=== PATIENT | female | born 1970 | race Two or more races ===

== ENCOUNTER 2021-02-09 13:22 | Emergency (ER) | payer BC ==
[~2021-02-09] VITALS: Ht 154.9 cm; Wt 92.5 kg
[2021-02-09 14:02] LABS: Basophils # (auto) 0.1 10 ^3/uL (0-0.2); Eosinophils # (auto) 0.3 10 ^3/uL (0-0.8); Eosinophils % (auto) 2.8 % (0.0-7.0); Hematocrit 42.7 % (36.0-46.0); Hemoglobin 14.6 g/dL (12.2-16.2); Lymphocytes # (auto) 2.7 10 ^3/uL (0.4-5.4); Mean Corpuscular Hemoglobin 29.2 pg (28.0-32.0); Mean Corpuscular Hgb Conc. 34.1 g/dL (32.0-36.0); Mean Corpuscular Volume 85.5 fL (80.0-100.0); Monocytes # (auto) 0.4 10 ^3/uL (0-1.3); Monocytes % (auto) 4.1 % (0.0-12.0); Neutrophils # (auto) 5.7 10 ^3/uL (1.6-8.6); Neutrophils % (auto) 62.1 % (37.0-80.0); Red Blood Cells 4.99 10^6/uL (4.0-5.20); Red Cell Distribution Width 16.1 % (11.8-14.3); White Blood Cell 9.1 10^3/uL (4.4-10.8)
[2021-02-09 14:21] LABS: Albumin 3.3 g/dL (3.4-5.0); Calcium 8.9 mg/dL (8.5-10.1); Magnesium 2.2 mg/dL (1.6-2.6); Potassium 3.9 mmol/L (3.5-5.1)
[2021-02-09 14:26] LABS: BUN/Creatinine Ratio 14.7; Bilirubin, Direct 0.1 mg/dL (0-0.2); Bilirubin, Total 0.4 mg/dL (0.2-1.0); Total Protein 7.6 g/dL (6.4-8.2)
[2021-02-09 14:34] LABS: Urine WBC None Seen /hpf (0 - 5)
[2021-02-09 14:40] LABS: Urine Bacteria FEW /hpf (None Seen); Urine Blood TRACE /uL (Negative); Urine Mucus FEW (None Seen); Urine Specific Gravity 1.013 (1.001-1.035)
[2021-02-09 18:13] VITALS: BP 148/70
== END 2021-02-09 18:15 | disposition home or self-care (01) ==
LOC: ER 13:22
DX: K80.20 Calculus of gallbladder without cholecystitis without obstruction (principal); K80.50 Calculus of bile duct without cholangitis or cholecystitis without obstruction; I10 Essential (primary) hypertension; M19.90 Unspecified osteoarthritis, unspecified site; Z88.0 Allergy status to penicillin; Z88.2 Allergy status to sulfonamides
CPT/HCPCS: 36415; 76705; 80048; 80076; 81001; 83605; 83690; 83735; 85025

== ENCOUNTER 2021-11-17 09:09 | Inpatient (IN) | payer BC ==
[~2021-11-17] VITALS: Ht 154.9 cm; Wt 101.0 kg
[2021-11-17 10:07] LABS: Basophils # (auto) 0.1 10 ^3/uL (0-0.2); Eosinophils # (auto) 0.4 10 ^3/uL (0-0.8); Eosinophils % (auto) 4.4 % (0.0-7.0); Hematocrit 39.9 % (36.0-46.0); Hemoglobin 13.4 g/dL (12.2-16.2); Lymphocytes % (auto) 23.9 % (10.0-50.0); Mean Corpuscular Hemoglobin 28.5 pg (28.0-32.0); Mean Corpuscular Hgb Conc. 33.6 g/dL (32.0-36.0); Mean Corpuscular Volume 84.8 fL (80.0-100.0); Monocytes # (auto) 0.4 10 ^3/uL (0-1.3); Monocytes % (auto) 4.6 % (0.0-12.0); Neutrophils # (auto) 5.5 10 ^3/uL (1.6-8.6); Neutrophils % (auto) 66.1 % (37.0-80.0); Nucleated Red Blood Cells % 0.1 %; Red Blood Cells 4.71 10^6/uL (4.0-5.20); Red Cell Distribution Width 15.9 % (11.8-14.3); White Blood Cell 8.4 10^3/uL (4.4-10.8)
[2021-11-17 10:25] LABS: Albumin 3.2 g/dL (3.4-5.0); Calcium 8.6 mg/dL (8.5-10.1); Magnesium 2.5 mg/dL (1.6-2.6); Potassium 3.8 mmol/L (3.5-5.1)
[2021-11-17 10:28] LABS: BUN/Creatinine Ratio 16.2; Bilirubin, Total 0.3 mg/dL (0.2-1.0); Total Protein 7.6 g/dL (6.4-8.2)
[2021-11-17] MEDS ORDERED: ASPirin 81 mg TAB PO ONE (12:00)
[2021-11-17] MEDS ORDERED: SODIUM CHLORIDE 0.9% 1,000 ML IV ONE (12:00)
[2021-11-17 12:08] LABS: Urine Bacteria NONE SEEN /hpf (None Seen); Urine Blood TRACE /uL (Negative); Urine Mucus FEW (None Seen); Urine Specific Gravity 1.023 (1.001-1.035); Urine WBC 1 /hpf (0 - 5)
[2021-11-17] MEDS ORDERED: ENOXAPARIN SOD 80 MG/0.8ML SYRINGE SC ONE (12:30)
[2021-11-17] MEDS ORDERED: METOPROLOL TARTRATE 1MG/1ML-5ML VIAL IV ONE ×2 (12:30→13:15)
[2021-11-17] MEDS ORDERED: MORPHINE SULFATE INJ 2 MG/ml SYRG IV PRN ×2 (13:30→15:15)
[2021-11-17] MEDS ORDERED: NITROGLYCERIN 0.4 MG SL TAB SL PRN (13:30)
[2021-11-17] MEDS ORDERED: FAMOTIDINE (10MG/ML) 2ML VL IV ONE (15:15)
[2021-11-17] MEDS ORDERED: ACETAMINOPHEN 325 MG TAB PO PRN (15:15)
[2021-11-17] MEDS ORDERED: ONDANSETRON HCL 4 MG/2 ML VIAL IV PRN (15:15)
[2021-11-17] MEDS ORDERED: HYDROcodone-ACET 5/325MG TAB PO PRN (15:15)
[2021-11-17] MEDS ORDERED: LORazepam 0.5 MG TAB PO PRN (15:15)
[2021-11-17] MEDS ORDERED: DOCUSATE SOD 100 MG CAP PO PRN (15:15)
[2021-11-17] MEDS ORDERED: IOHEXOL 350 MG/ML 100ML IJ ONE (15:27)
[2021-11-17 16:13] LABS: Magnesium 2.3 mg/dL (1.6-2.6); Phosphorus 2.9 mg/dL (2.5-4.90)
[2021-11-17] MEDS ORDERED: METO25TA5 PO ×2 (20:20→22:49)
[2021-11-17 22:47] VITALS: BP 107/70
[2021-11-17 22:50] LABS: INR 0.97 (0.9-1.15); Partial Thromboplastin Time 28.5 sec (23.6-33.0)
[2021-11-17] MEDS ORDERED: MET25T PO (22:59)
[2021-11-17] MEDS ORDERED: MONT-8 PO (22:59)
[2021-11-17] MEDS ORDERED: PRED20TA2 PO (22:59)
[2021-11-17] MEDS ORDERED: AZIT250T9 PO (22:59)
[2021-11-18 05:44] VITALS: BP 125/58
[2021-11-18 07:55] LABS: Basophils # (auto) 0.1 10 ^3/uL (0-0.2); Basophils % (auto) 0.7 % (0.0-2.0); Eosinophils # (auto) 0.3 10 ^3/uL (0-0.8); Eosinophils % (auto) 4.3 % (0.0-7.0); Hematocrit 38.1 % (36.0-46.0); Lymphocytes # (auto) 2.7 10 ^3/uL (0.4-5.4); Lymphocytes % (auto) 33.7 % (10.0-50.0); Mean Corpuscular Hemoglobin 28.8 pg (28.0-32.0); Mean Corpuscular Volume 84.6 fL (80.0-100.0); Monocytes # (auto) 0.4 10 ^3/uL (0-1.3); Monocytes % (auto) 5.5 % (0.0-12.0); Neutrophils # (auto) 4.5 10 ^3/uL (1.6-8.6); Neutrophils % (auto) 55.8 % (37.0-80.0); Red Blood Cells 4.51 10^6/uL (4.0-5.20); Red Cell Distribution Width 15.8 % (11.8-14.3)
[2021-11-18 08:10] LABS: Magnesium 2.2 mg/dL (1.6-2.6); Potassium 3.7 mmol/L (3.5-5.1)
[2021-11-18 08:13] LABS: INR 0.99 (0.9-1.15); Partial Thromboplastin Time 29.9 sec (23.6-33.0)
[2021-11-18 08:22] LABS: BUN/Creatinine Ratio 16.4; Bilirubin, Total 0.2 mg/dL (0.2-1.0); CRP High Sensitivity 1.47 mg/dL (< 0.3); Calcium 8.5 mg/dL (8.5-10.1); Phosphorus 3.4 mg/dL (2.5-4.90); Uric Acid 5.2 mg/dL (2.6-6.0)
[2021-11-18 09:00] VITALS: BP 134/53
[2021-11-18] MEDS ORDERED: FAMOTIDINE (10MG/ML) 2ML VL IV SCH (10:00)
[2021-11-18] MEDS: ENOXAPARIN SOD 40 MG/0.4 ML SYRINGE SC SCH (10:00)
[2021-11-18] MEDS ORDERED: BENAZEPRIL HCL 10 MG TAB PO ONE (12:00)
[2021-11-18 13:00] VITALS: BP 163/78
[2021-11-18] MEDS: hydrALAZINE HCL 20 MG/ML VL IV PRN (13:10)
[2021-11-18 14:38] VITALS: BP 140/50
[2021-11-18 15:22] LABS: Alcohol, Urine < 3.0 mg/dL (0-10); Amphetamine Screen, Urine NEGATIVE (NEGATIVE); Barbiturate Scree,Urine NEGATIVE (NEGATIVE); Benzodiazephine Screen, Urine NEGATIVE (NEGATIVE); Cannabinoid Screen, Urine NEGATIVE (NEGATIVE); Cocaine Screen, Urine NEGATIVE (NEGATIVE); Opiate Scree,Urine NEGATIVE (NEGATIVE); Phencyclidine Screen, Urine NEGATIVE (NEGATIVE); Protein, Urine 16.1 mg/dL (0.0-11.9)
[2021-11-18] MEDS ORDERED: ASPirin 81 mg TAB PO ONE (15:45)
[2021-11-18] MEDS ORDERED: VALSARTAN 80 MG TAB PO ONE (15:45)
[2021-11-18 22:00] VITALS: BP 137/81
[2021-11-18] MEDS ORDERED: METOPROLOL TARTRATE 25 MG TAB PO SCH (22:00)
[2021-11-18] MEDS: ATORVASTATIN 20 MG TAB PO SCH (22:42)
[2021-11-19] MEDS ORDERED: DEXTROSE (50%) 50ML SYRG IV PRN (03:00)
[2021-11-19] MEDS: levoFLOXacin 500MG 100 ML IV SCH (03:26)
[2021-11-19 05:00] VITALS: BP 137/64
[2021-11-19] MEDS: ACCU-CHEK COMFORT CURVE STRIP VI SCH ×4 (05:35→23:26)
[2021-11-19] MEDS: InsuLIN REG 1unit/0.01ml Soln (100units/ml) SC SCH ×4 (05:35→23:26)
[2021-11-19 07:10] LABS: Basophils # (auto) 0.1 10 ^3/uL (0-0.2); Basophils % (auto) 0.8 % (0.0-2.0); Eosinophils # (auto) 0.3 10 ^3/uL (0-0.8); Eosinophils % (auto) 4.2 % (0.0-7.0); Hematocrit 40.1 % (36.0-46.0); Hemoglobin 13.1 g/dL (12.2-16.2); Lymphocytes # (auto) 1.9 10 ^3/uL (0.4-5.4); Lymphocytes % (auto) 24.4 % (10.0-50.0); Mean Corpuscular Hemoglobin 27.7 pg (28.0-32.0); Mean Corpuscular Hgb Conc. 32.6 g/dL (32.0-36.0); Monocytes # (auto) 0.4 10 ^3/uL (0-1.3); Monocytes % (auto) 5.2 % (0.0-12.0); Neutrophils # (auto) 5.1 10 ^3/uL (1.6-8.6); Neutrophils % (auto) 65.4 % (37.0-80.0); Red Blood Cells 4.72 10^6/uL (4.0-5.20); Red Cell Distribution Width 15.7 % (11.8-14.3); White Blood Cell 7.8 10^3/uL (4.4-10.8)
[2021-11-19] MEDS ORDERED: ADENOSINE 83 MG in GIVE UN-DILUTED 0 ML IV STA (07:30)
[2021-11-19 07:32] LABS: Calcium 8.6 mg/dL (8.5-10.1); Potassium 3.8 mmol/L (3.5-5.1)
[2021-11-19 07:37] LABS: BUN/Creatinine Ratio 19.2; Bilirubin, Total 0.3 mg/dL (0.2-1.0); Magnesium 2.4 mg/dL (1.6-2.6); Phosphorus 3.3 mg/dL (2.5-4.90); Total Protein 7.1 g/dL (6.4-8.2)
[2021-11-19 07:38] LABS: INR 0.98 (0.9-1.15)
[2021-11-19 09:00] VITALS: BP 129/54
[2021-11-19] MEDS: ASPirin 81 mg TAB PO SCH (09:00)
[2021-11-19] MEDS: ENOXAPARIN SOD 40 MG/0.4 ML SYRINGE SC SCH (09:00)
[2021-11-19] MEDS ORDERED: BENAZEPRIL HCL 10 MG TAB PO SCH (10:00)
[2021-11-19 10:25] VITALS: BP 164/60
[2021-11-19 12:30] VITALS: BP 127/65
[2021-11-19 17:13] VITALS: BP 119/57
[2021-11-19] MEDS ORDERED: ERGOCALCIFEROL 50,000 UNIT(1.25MG) CAP PO SCH (17:45)
[2021-11-19] MEDS: ATORVASTATIN 20 MG TAB PO SCH (21:08)
[2021-11-19 22:00] VITALS: BP 130/59
[2021-11-20] MEDS: levoFLOXacin 500MG 100 ML IV SCH (03:15)
[2021-11-20 05:00] VITALS: BP 112/53
[2021-11-20] MEDS: InsuLIN REG 1unit/0.01ml Soln (100units/ml) SC SCH ×4 (05:15→23:57)
[2021-11-20] MEDS: ACCU-CHEK COMFORT CURVE STRIP VI SCH ×4 (05:15→23:57)
[2021-11-20 09:00] VITALS: BP 122/56
[2021-11-20] MEDS: ASPirin 81 mg TAB PO SCH (09:44)
[2021-11-20] MEDS: ENOXAPARIN SOD 40 MG/0.4 ML SYRINGE SC SCH (09:45)
[2021-11-20] MEDS: LOSARTAN POTASSIUM 50 MG TAB PO SCH (09:48)
[2021-11-20 12:41] VITALS: BP 136/70
[2021-11-20 17:14] VITALS: BP 109/66
[2021-11-20 22:00] VITALS: BP 133/55
[2021-11-20] MEDS: ATORVASTATIN 20 MG TAB PO SCH (22:00)
[2021-11-21] VITALS (14 sets, daily range): BP systolic 115–172; BP diastolic 53–80
[2021-11-21] MEDS: levoFLOXacin 500MG 100 ML IV SCH (03:15)
[2021-11-21 05:45] LABS: Basophils # (auto) 0.1 10 ^3/uL (0-0.2); Basophils % (auto) 0.7 % (0.0-2.0); Eosinophils # (auto) 0.3 10 ^3/uL (0-0.8); Eosinophils % (auto) 3.9 % (0.0-7.0); Hematocrit 37.4 % (36.0-46.0); Hemoglobin 12.6 g/dL (12.2-16.2); Lymphocytes # (auto) 2.7 10 ^3/uL (0.4-5.4); Mean Corpuscular Hemoglobin 28.5 pg (28.0-32.0); Mean Corpuscular Hgb Conc. 33.6 g/dL (32.0-36.0); Mean Corpuscular Volume 84.6 fL (80.0-100.0); Monocytes # (auto) 0.5 10 ^3/uL (0-1.3); Monocytes % (auto) 5.6 % (0.0-12.0); Neutrophils # (auto) 5.1 10 ^3/uL (1.6-8.6); Neutrophils % (auto) 58.8 % (37.0-80.0); Nucleated Red Blood Cells % 0.1 %; Red Blood Cells 4.42 10^6/uL (4.0-5.20); Red Cell Distribution Width 15.8 % (11.8-14.3); White Blood Cell 8.6 10^3/uL (4.4-10.8)
[2021-11-21 06:00] LABS: INR 0.99 (0.9-1.15); Partial Thromboplastin Time 28.4 sec (23.6-33.0)
[2021-11-21] MEDS: InsuLIN REG 1unit/0.01ml Soln (100units/ml) SC SCH ×4 (06:00→21:33)
[2021-11-21] MEDS: ACCU-CHEK COMFORT CURVE STRIP VI SCH ×4 (06:01→21:34)
[2021-11-21 06:03] LABS: Calcium 8.5 mg/dL (8.5-10.1); Potassium 3.8 mmol/L (3.5-5.1)
[2021-11-21 06:09] LABS: BUN/Creatinine Ratio 21.1
[2021-11-21] MEDS ORDERED: ANGIOMAX 250 MG VIAL IV ONE (09:47)
[2021-11-21] MEDS ORDERED: VERAPAMIL 2.5MG/ML INJ 2ML VIAL IV ONE (09:48)
[2021-11-21] MEDS ORDERED: fentaNYL CITRATE 100 MCG/2 ML VL ONE (09:48)
[2021-11-21] MEDS ORDERED: MIDAZOLAM HCL 2MG/2ML 2ml VIAL (1mg/ml) ONE (09:49)
[2021-11-21] MEDS ORDERED: LIDOCAINE 2%HCL (LOCAL ANESTH.) INJ 10ml MDV ONE (09:49)
[2021-11-21] MEDS ORDERED: SODIUM CHL 0.9% 50 ML ONE (09:49)
[2021-11-21] MEDS: ENOXAPARIN SOD 40 MG/0.4 ML SYRINGE SC SCH (10:00)
[2021-11-21] MEDS ORDERED: diphenhdrAMINE HCL 50 MG/1 ML VL ONE (10:16)
[2021-11-21] MEDS ORDERED: IOHEXOL 350 MG/ML 100ML IJ ONE (10:32)
[2021-11-21] MEDS ORDERED: ASPirin 325 MG TAB ONE (10:56)
[2021-11-21] MEDS ORDERED: TICAGRELOR 90 MG TAB ONE (10:56)
[2021-11-21] MEDS: ASPirin 81 mg TAB PO SCH (11:07)
[2021-11-21] MEDS: LOSARTAN POTASSIUM 50 MG TAB PO SCH (14:04)
[2021-11-21] MEDS: hydrALAZINE HCL 20 MG/ML VL IV PRN (14:50)
[2021-11-21] MEDS ORDERED: clonazePAM 0.5 MG TAB PO ONE (16:15)
[2021-11-21] MEDS: ATORVASTATIN 20 MG TAB PO SCH (21:33)
[2021-11-21] MEDS: TICAGRELOR 90 MG TAB PO SCH (21:50)
[2021-11-22] MEDS: levoFLOXacin 500MG 100 ML IV SCH (03:15)
[2021-11-22 05:00] VITALS: BP 101/58
[2021-11-22] MEDS: InsuLIN REG 1unit/0.01ml Soln (100units/ml) SC SCH ×2 (05:16→11:34)
[2021-11-22] MEDS: ACCU-CHEK COMFORT CURVE STRIP VI SCH ×2 (05:17→11:34)
[2021-11-22 06:25] LABS: BUN/Creatinine Ratio 26.6; Calcium 8.7 mg/dL (8.5-10.1); Potassium 3.9 mmol/L (3.5-5.1)
[2021-11-22 06:58] LABS: Basophils # (auto) 0.1 10 ^3/uL (0-0.2); Basophils % (auto) 0.6 % (0.0-2.0); Eosinophils # (auto) 0.4 10 ^3/uL (0-0.8); Eosinophils % (auto) 3.7 % (0.0-7.0); Hematocrit 34.9 % (36.0-46.0); Hemoglobin 11.9 g/dL (12.2-16.2); Lymphocytes # (auto) 2.2 10 ^3/uL (0.4-5.4); Lymphocytes % (auto) 21.9 % (10.0-50.0); Mean Corpuscular Hemoglobin 28.9 pg (28.0-32.0); Mean Corpuscular Hgb Conc. 34.1 g/dL (32.0-36.0); Mean Corpuscular Volume 84.7 fL (80.0-100.0); Monocytes # (auto) 0.5 10 ^3/uL (0-1.3); Monocytes % (auto) 5.4 % (0.0-12.0); Neutrophils % (auto) 68.4 % (37.0-80.0); Red Blood Cells 4.12 10^6/uL (4.0-5.20); Red Cell Distribution Width 15.6 % (11.8-14.3); White Blood Cell 10.2 10^3/uL (4.4-10.8)
[2021-11-22 09:00] VITALS: BP 106/60
[2021-11-22] MEDS: LOSARTAN POTASSIUM 50 MG TAB PO SCH (09:31)
[2021-11-22] MEDS: ENOXAPARIN SOD 40 MG/0.4 ML SYRINGE SC SCH (09:31)
[2021-11-22] MEDS: TICAGRELOR 90 MG TAB PO SCH (09:32)
[2021-11-22] MEDS: ASPirin 81 mg TAB PO SCH (09:32)
[2021-11-22 13:00] VITALS: BP 111/71
[2021-11-22] MEDS ORDERED: ASPI1CHW15 PO (14:29)
[2021-11-22] MEDS ORDERED: ATOR20TA50 PO (14:29)
[2021-11-22] MEDS ORDERED: LOSA25TA38 PO (14:29)
[2021-11-22] MEDS ORDERED: ERGO1CAP23 PO (14:29)
[2021-11-22] MEDS ORDERED: BLOO1KIT60 XX (14:29)
[2021-11-22] MEDS ORDERED: TICA90TA PO (14:29)
[2021-11-22] MEDS ORDERED: EMPA1TAB PO (14:31)
[2021-11-22 14:58] VITALS: BP 106/60
[2021-11-22] MEDS ORDERED: METOPROLOL TARTRATE 25 MG TAB PO SCH (22:00)
== END 2021-11-22 16:00 | disposition home or self-care (01) | DRG 246 ==
LOC: ER 09:09 → TELE 13:24 → TELE-WESTW 17:01
PROVIDERS: ADMIT Hospitalist; ATTEND Internal Medicine
PROC: B2151ZZ Fluoroscopy of Left Heart using Low Osmolar Contrast (ICD-10-PCS; principal; 2021-11-21)
PROC: 027135Z Dilation of Coronary Artery, Two Arteries with Two Drug-eluting Intraluminal Devices, Percutaneous Approach (ICD-10-PCS; 2021-11-21)
PROC: B2111ZZ Fluoroscopy of Multiple Coronary Arteries using Low Osmolar Contrast (ICD-10-PCS; 2021-11-21)
PROC: 4A023N7 Measurement of Cardiac Sampling and Pressure, Left Heart, Percutaneous Approach (ICD-10-PCS; 2021-11-21)
DX: I21.4 Non-ST elevation (NSTEMI) myocardial infarction (principal); J18.9 Pneumonia, unspecified organism; E44.1 Mild protein-calorie malnutrition; I16.9 Hypertensive crisis, unspecified; Z68.41 Body mass index [BMI] 40.0-44.9, adult; I24.9 Acute ischemic heart disease, unspecified; E11.65 Type 2 diabetes mellitus with hyperglycemia; K21.9 Gastro-esophageal reflux disease without esophagitis; K29.70 Gastritis, unspecified, without bleeding; F41.9 Anxiety disorder, unspecified; K76.0 Fatty (change of) liver, not elsewhere classified; K80.20 Calculus of gallbladder without cholecystitis without obstruction; E66.01 Morbid (severe) obesity due to excess calories; E78.5 Hyperlipidemia, unspecified; I11.9 Hypertensive heart disease without heart failure; I25.110 Atherosclerotic heart disease of native coronary artery with unstable angina pectoris; Z20.822 Contact with and (suspected) exposure to COVID-19; M19.90 Unspecified osteoarthritis, unspecified site; Z88.0 Allergy status to penicillin; Z88.2 Allergy status to sulfonamides; Z82.49 Family history of ischemic heart disease and other diseases of the circulatory system; Z72.0 Tobacco use
CPT/HCPCS: 36415; 71045; 71275; 76705; 78452; 80048; 80053; 80061; 80307; 81001; 82306; 82728; 82962; 83036; 83615; 83690; 83735; 83880; 84100; 84156; 84443; 84484; 84550; 85025; 85379; 85610; 85652; 85730; 86141; 87040; 87086; 92928; 92929; 93005; 93017; 93306; 93458; 96361; 96374; 96375; 99152; 99153; C1874; G0378; J0153; J1815; J1956; J2001; J2250

== ENCOUNTER 2022-09-22 17:52 | Emergency (ER) | payer BC ==
[~2022-09-22] VITALS: Ht 154.9 cm; Wt 90.0 kg
[~2022-09-22 17:52] MED LIST: ASPI1CHW15 PO; ATOR20TA50 PO; BLOO1KIT60 XX; EMPA1TAB PO; ERGO1CAP23 PO; LOSA25TA38 PO; TICA90TA PO
[2022-09-22] MEDS ORDERED: IPRATROPIUM BROM 0.5 MG/2.5ML INH SOL NEB ONE (19:00)
[2022-09-22] MEDS ORDERED: ALBUTEROL SULF 2.5 MG/0.5ML(0.5%) NEB SOLN NEB ONE (19:00)
[2022-09-22] MEDS ORDERED: DexAMETHasone SOD PHOS 10MG/1ML VIAL INJ IM ONE (19:00)
[2022-09-22] MEDS ORDERED: IPRATROPIUM BROM 0.5 MG/2.5ML INH SOL ONE (19:01)
[2022-09-22] MEDS ORDERED: ALBUTEROL SULF 2.5 MG/0.5ML(0.5%) NEB SOLN ONE (19:02)
[2022-09-22 19:11] LABS: Albumin 3.1 g/dL (3.4-5.0); BUN/Creatinine Ratio 19.5; Calcium 8.6 mg/dL (8.5-10.1); Potassium 3.5 mmol/L (3.5-5.1)
[2022-09-22 19:13] LABS: Bilirubin, Total 0.3 mg/dL (0.2-1.0); Total Protein 6.8 g/dL (6.4-8.2)
[2022-09-22 19:53] LABS: Basophils # (auto) 0.1 10 ^3/uL (0-0.2); Eosinophils % (auto) 2.7 % (0.0-7.0); Hemoglobin 9.5 g/dL (12.2-16.2); Lymphocytes # (auto) 1.7 10 ^3/uL (0.4-5.4); Monocytes # (auto) 0.4 10 ^3/uL (0-1.3)
[2022-09-22 19:55] LABS: Basophils % (auto) 1.2 % (0.0-2.0); Eosinophils # (auto) 0.2 10 ^3/uL (0-0.8); Hematocrit 31.1 % (36.0-46.0); Lymphocytes % (auto) 18.9 % (10.0-50.0); Mean Corpuscular Hemoglobin 23.7 pg (28.0-32.0); Mean Corpuscular Hgb Conc. 30.6 g/dL (32.0-36.0); Mean Corpuscular Volume 77.6 fL (80.0-100.0); Neutrophils # (auto) 6.5 10 ^3/uL (1.6-8.6); Neutrophils % (auto) 72.2 % (37.0-80.0); Nucleated Red Blood Cells % 0.1 %; Red Blood Cells 4.01 10^6/uL (4.0-5.20); Red Cell Distribution Width 17.8 % (11.8-14.3); White Blood Cell 8.9 10^3/uL (4.4-10.8)
[2022-09-22] MEDS ORDERED: AZITHROMYCIN 250 MG TAB PO ONE (21:30)
[2022-09-22] MEDS ORDERED: BENZ100C19 PO (21:36)
[2022-09-22] MEDS ORDERED: AZIT200S47 PO (21:36)
[2022-09-22] MEDS ORDERED: ALBU108A5 IN (21:36)
[2022-09-22 22:15] VITALS: BP 127/81
== END 2022-09-22 22:24 | disposition home or self-care (01) ==
LOC: ER 17:52
DX: J18.9 Pneumonia, unspecified organism (principal); D64.9 Anemia, unspecified; F41.9 Anxiety disorder, unspecified; J45.909 Unspecified asthma, uncomplicated; I10 Essential (primary) hypertension; F17.210 Nicotine dependence, cigarettes, uncomplicated
CPT/HCPCS: 36415; 71046; 80053; 85025; 93005; 94640; 96372; 99285; J1100; J7644

== ENCOUNTER 2022-09-27 12:47 | Inpatient (IN) | payer BC ==
[~2022-09-27] VITALS: Ht 154.9 cm; Wt 96.9 kg
[~2022-09-27 12:47] MED LIST changes: +ALBU108A5 IN; +AZIT200S47 PO; +BENZ100C19 PO
[2022-09-27] MEDS ORDERED: methylPREDNISolone SOD SUCC 125 MG/2 ML VL IV ONE (13:15)
[2022-09-27] MEDS ORDERED: IPRATROPIUM BROM 0.5 MG/2.5ML INH SOL NEB ONE (13:15)
[2022-09-27] MEDS ORDERED: ALBUTEROL SULF 2.5 MG/0.5ML(0.5%) NEB SOLN NEB ONE (13:15)
[2022-09-27 13:42] LABS: Basophils # (auto) 0.1 10 ^3/uL (0-0.2); Basophils % (auto) 1.3 % (0.0-2.0); Hemoglobin 10.5 g/dL (12.2-16.2); Lymphocytes # (auto) 1.6 10 ^3/uL (0.4-5.4); Monocytes # (auto) 0.4 10 ^3/uL (0-1.3); Red Cell Distribution Width 17.5 % (11.8-14.3)
[2022-09-27 13:43] LABS: Eosinophils # (auto) 0.6 10 ^3/uL (0-0.8); Eosinophils % (auto) 6.4 % (0.0-7.0); Hematocrit 34.3 % (36.0-46.0); Lymphocytes % (auto) 16.2 % (10.0-50.0); Mean Corpuscular Hemoglobin 23.6 pg (28.0-32.0); Mean Corpuscular Hgb Conc. 30.7 g/dL (32.0-36.0); Monocytes % (auto) 4.5 % (0.0-12.0); Neutrophils % (auto) 71.6 % (37.0-80.0); Nucleated Red Blood Cells % 0.2 %; Red Blood Cells 4.45 10^6/uL (4.0-5.20); White Blood Cell 9.7 10^3/uL (4.4-10.8)
[2022-09-27 14:11] LABS: Calcium 8.8 mg/dL (8.5-10.1); Magnesium 2.5 mg/dL (1.6-2.6); Potassium 3.7 mmol/L (3.5-5.1)
[2022-09-27 14:14] LABS: BUN/Creatinine Ratio 17.3 (10.0-20.0); Bilirubin, Total 0.4 mg/dL (0.2-1.0); Total Protein 6.8 g/dL (6.4-8.2)
[2022-09-27] MEDS ORDERED: PANTOPRAZOLE 40 MG/10 ML VIAL INJ IV ONE (17:30)
[2022-09-27] MEDS ORDERED: ALBUTEROL SULF 2.5 MG/0.5ML(0.5%) NEB SOLN NEB PRN (17:30)
[2022-09-27] MEDS ORDERED: ONDANSETRON HCL 4 MG/2 ML VIAL IV PRN (17:30)
[2022-09-27] MEDS ORDERED: DEXTROSE (50%) 50ML SYRG IV PRN (17:30)
[2022-09-27] MEDS: cefTRIAXone 1GM/50ML D5W 50 ML IV SCH (17:39)
[2022-09-27] MEDS: AZITHROMYCIN 500MG/ 250ML 250 ML IV SCH (18:00)
[2022-09-27 18:20] VITALS: BP 137/71
[2022-09-27] MEDS: ALBUTEROL SULF 2.5 MG/0.5ML(0.5%) NEB SOLN NEB SCH ×2 (18:26→22:24)
[2022-09-27] MEDS: IPRATROPIUM BROM 0.5 MG/2.5ML INH SOL NEB SCH ×2 (18:26→22:23)
[2022-09-27 18:52] LABS: Cholesterol 120 mg/dL (< 200)
[2022-09-27 18:55] LABS: HDL Cholesterol 52 mg/dL (40-59); LDL Cholesterol 63 mg/dL (< 100); Triglycerides 86 mg/dL (< 150)
[2022-09-27 20:07] LABS: Urine Bacteria NONE SEEN /hpf (None Seen); Urine Blood Negative /uL (Negative); Urine Mucus FEW (None Seen); Urine Specific Gravity 1.019 (1.001-1.035); Urine WBC 1 /hpf (0 - 5)
[2022-09-27] MEDS: SODIUM CHLORIDE 0.9% 1,000 ML IV SCH (21:20)
[2022-09-27] MEDS: InsuLIN REG 1unit/0.01ml Soln (100units/ml) SC SCH (21:41)
[2022-09-27] MEDS: ACCU-CHEK COMFORT CURVE STRIP VI SCH (21:41)
[2022-09-27] MEDS: methylPREDNISolone SOD SUCC 125 MG/2 ML VL IV SCH (21:44)
[2022-09-27] MEDS: ATORVASTATIN 20 MG TAB PO SCH (21:44)
[2022-09-27] MEDS: TICAGRELOR 90 MG TAB PO SCH (22:00)
[2022-09-27] MEDS ORDERED: IOHEXOL 350 MG/ML 100ML IJ ONE (22:14)
[2022-09-27 23:38] VITALS: BP 126/71
[2022-09-28] MEDS: ALBUTEROL SULF 2.5 MG/0.5ML(0.5%) NEB SOLN NEB SCH ×6 (02:05→22:00)
[2022-09-28] MEDS: IPRATROPIUM BROM 0.5 MG/2.5ML INH SOL NEB SCH ×6 (02:05→22:00)
[2022-09-28 05:00] VITALS: BP 106/46
[2022-09-28 05:56] LABS: Eosinophils # (auto) 0 10 ^3/uL (0-0.8); Lymphocytes # (auto) 0.6 10 ^3/uL (0.4-5.4); Lymphocytes % (auto) 5.8 % (10.0-50.0); Monocytes # (auto) 0.1 10 ^3/uL (0-1.3); Neutrophils # (auto) 10.2 10 ^3/uL (1.6-8.6)
[2022-09-28 05:58] LABS: Basophils # (auto) 0 10 ^3/uL (0-0.2); Basophils % (auto) 0.1 % (0.0-2.0); Hematocrit 31.3 % (36.0-46.0); Hemoglobin 9.6 g/dL (12.2-16.2); Mean Corpuscular Hemoglobin 23.3 pg (28.0-32.0); Mean Corpuscular Hgb Conc. 30.8 g/dL (32.0-36.0); Mean Corpuscular Volume 75.7 fL (80.0-100.0); Monocytes % (auto) 0.5 % (0.0-12.0); Neutrophils % (auto) 93.6 % (37.0-80.0); Red Blood Cells 4.13 10^6/uL (4.0-5.20); Red Cell Distribution Width 17.6 % (11.8-14.3)
[2022-09-28 06:31] LABS: Albumin 2.9 g/dL (3.4-5.0); BUN/Creatinine Ratio 20.7 (10.0-20.0); Calcium 9.3 mg/dL (8.5-10.1)
[2022-09-28] MEDS: ACCU-CHEK COMFORT CURVE STRIP VI SCH ×4 (06:34→21:34)
[2022-09-28] MEDS: InsuLIN REG 1unit/0.01ml Soln (100units/ml) SC SCH ×4 (06:34→21:34)
[2022-09-28 06:53] LABS: Bilirubin, Total 0.2 mg/dL (0.2-1.0); Total Protein 6.6 g/dL (6.4-8.2)
[2022-09-28 09:00] VITALS: BP 127/59
[2022-09-28] MEDS ORDERED: cefTRIAXone 1GM/50ML D5W 50 ML IV SCH (09:00)
[2022-09-28] MEDS: PANTOPRAZOLE 40 MG/10 ML VIAL INJ IV SCH ×2 (09:31→09:43)
[2022-09-28] MEDS: methylPREDNISolone SOD SUCC 125 MG/2 ML VL IV SCH ×2 (09:31→21:16)
[2022-09-28] MEDS: LOSARTAN POTASSIUM 25 MG TAB PO SCH (09:32)
[2022-09-28] MEDS: ASPirin-EC 81 mg tab PO SCH (09:32)
[2022-09-28] MEDS: TICAGRELOR 90 MG TAB PO SCH (09:33)
[2022-09-28] MEDS: cefTRIAXone 1GM/50ML D5W 50 ML IV SCH (09:36)
[2022-09-28] MEDS: SODIUM CHLORIDE 0.9% 1,000 ML IV SCH (09:52)
[2022-09-28] MEDS ORDERED: ENOXAPARIN SOD 40 MG/0.4 ML SYRINGE SC SCH (10:00)
[2022-09-28] MEDS ORDERED: AZITHROMYCIN 500MG/ 250ML 250 ML IV SCH (10:00)
[2022-09-28] MEDS ORDERED: CLOP75TA28 PO (10:04)
[2022-09-28] MEDS: ACETAMINOPHEN 325 MG TAB PO PRN (11:27)
[2022-09-28] MEDS: CLOPIDOGREL BISULFATE 75 MG TAB PO SCH (11:27)
[2022-09-28] MEDS: AZITHROMYCIN 500MG/ 250ML 250 ML IV SCH (11:28)
[2022-09-28 13:00] VITALS: BP 119/66
[2022-09-28 17:00] VITALS: BP 141/70
[2022-09-28 20:00] VITALS: BP 124/39
[2022-09-28] MEDS: ATORVASTATIN 20 MG TAB PO SCH (21:16)
[2022-09-28 22:00] VITALS: BP 124/39
[2022-09-29] MEDS: IPRATROPIUM BROM 0.5 MG/2.5ML INH SOL NEB SCH ×6 (02:00→23:24)
[2022-09-29] MEDS: ALBUTEROL SULF 2.5 MG/0.5ML(0.5%) NEB SOLN NEB SCH ×6 (02:00→23:23)
[2022-09-29] MEDS: SODIUM CHLORIDE 0.9% 1,000 ML IV SCH ×2 (02:50→19:30)
[2022-09-29 05:00] VITALS: BP 102/42
[2022-09-29] MEDS: ACCU-CHEK COMFORT CURVE STRIP VI SCH ×4 (06:10→22:11)
[2022-09-29] MEDS: InsuLIN REG 1unit/0.01ml Soln (100units/ml) SC SCH ×4 (06:13→22:00)
[2022-09-29 09:00] VITALS: BP 131/74
[2022-09-29] MEDS: ASPirin-EC 81 mg tab PO SCH (09:02)
[2022-09-29] MEDS: ACETAMINOPHEN 325 MG TAB PO PRN (09:02)
[2022-09-29] MEDS: CLOPIDOGREL BISULFATE 75 MG TAB PO SCH (09:02)
[2022-09-29] MEDS: LOSARTAN POTASSIUM 25 MG TAB PO SCH (09:08)
[2022-09-29] MEDS: methylPREDNISolone SOD SUCC 125 MG/2 ML VL IV SCH ×2 (09:09→22:11)
[2022-09-29] MEDS: cefTRIAXone 1GM/50ML D5W 50 ML IV SCH (09:09)
[2022-09-29] MEDS ORDERED: CLOPIDOGREL BISULFATE 75 MG TAB PO SCH (10:00)
[2022-09-29] MEDS: PANTOPRAZOLE 40 MG/10 ML VIAL INJ IV SCH (10:00)
[2022-09-29] MEDS: AZITHROMYCIN 500MG/ 250ML 250 ML IV SCH (10:55)
[2022-09-29 13:00] VITALS: BP 130/57
[2022-09-29 17:00] VITALS: BP 136/64
[2022-09-29 22:00] VITALS: BP 128/77
[2022-09-29] MEDS: ATORVASTATIN 20 MG TAB PO SCH (22:11)
[2022-09-29] MEDS ORDERED: ALBUTEROL SULF 2.5 MG/0.5ML(0.5%) NEB SOLN ONE (22:41)
[2022-09-29] MEDS ORDERED: IPRATROPIUM BROM 0.5 MG/2.5ML INH SOL ONE (22:41)
[2022-09-30] MEDS: IPRATROPIUM BROM 0.5 MG/2.5ML INH SOL NEB SCH ×6 (01:18→23:12)
[2022-09-30] MEDS: ALBUTEROL SULF 2.5 MG/0.5ML(0.5%) NEB SOLN NEB SCH ×6 (01:19→23:12)
[2022-09-30 05:00] VITALS: BP 117/60
[2022-09-30] MEDS: InsuLIN REG 1unit/0.01ml Soln (100units/ml) SC SCH (06:39)
[2022-09-30] MEDS: ACCU-CHEK COMFORT CURVE STRIP VI SCH (06:39)
[2022-09-30 09:00] VITALS: BP 125/62
[2022-09-30] MEDS: LOSARTAN POTASSIUM 25 MG TAB PO SCH (09:23)
[2022-09-30] MEDS: methylPREDNISolone SOD SUCC 125 MG/2 ML VL IV SCH ×2 (09:23→22:24)
[2022-09-30] MEDS: CLOPIDOGREL BISULFATE 75 MG TAB PO SCH (09:23)
[2022-09-30] MEDS: ASPirin-EC 81 mg tab PO SCH (09:23)
[2022-09-30] MEDS: cefTRIAXone 1GM/50ML D5W 50 ML IV SCH (09:23)
[2022-09-30] MEDS: AZITHROMYCIN 500MG/ 250ML 250 ML IV SCH (11:41)
[2022-09-30] MEDS: SODIUM CHLORIDE 0.9% 1,000 ML IV SCH (12:10)
[2022-09-30 13:00] VITALS: BP 151/70
[2022-09-30 17:00] VITALS: BP 124/65
[2022-09-30 21:00] VITALS: BP 124/65
[2022-09-30 22:00] VITALS: BP 117/39
[2022-09-30] MEDS: ATORVASTATIN 20 MG TAB PO SCH (22:25)
[2022-10-01] MEDS: IPRATROPIUM BROM 0.5 MG/2.5ML INH SOL NEB SCH ×6 (02:05→22:39)
[2022-10-01] MEDS: ALBUTEROL SULF 2.5 MG/0.5ML(0.5%) NEB SOLN NEB SCH ×6 (02:05→22:37)
[2022-10-01] MEDS: SODIUM CHLORIDE 0.9% 1,000 ML IV SCH ×2 (04:50→21:22)
[2022-10-01 05:00] VITALS: BP 131/66
[2022-10-01 06:38] LABS: Basophils # (auto) 0 10 ^3/uL (0-0.2); Basophils % (auto) 0.1 % (0.0-2.0); Eosinophils # (auto) 0 10 ^3/uL (0-0.8); Monocytes # (auto) 0.1 10 ^3/uL (0-1.3); Monocytes % (auto) 1.1 % (0.0-12.0)
[2022-10-01 06:41] LABS: Hematocrit 30.4 % (36.0-46.0); Hemoglobin 9.3 g/dL (12.2-16.2); Lymphocytes % (auto) 8.4 % (10.0-50.0); Mean Corpuscular Hemoglobin 23.2 pg (28.0-32.0); Mean Corpuscular Hgb Conc. 30.7 g/dL (32.0-36.0); Mean Corpuscular Volume 75.6 fL (80.0-100.0); Neutrophils # (auto) 10.6 10 ^3/uL (1.6-8.6); Neutrophils % (auto) 90.4 % (37.0-80.0); Red Blood Cells 4.02 10^6/uL (4.0-5.20); Red Cell Distribution Width 16.9 % (11.8-14.3); White Blood Cell 11.7 10^3/uL (4.4-10.8)
[2022-10-01 07:11] LABS: BUN/Creatinine Ratio 32.7 (10.0-20.0); Calcium 8.4 mg/dL (8.5-10.1)
[2022-10-01 09:00] VITALS: BP 129/62
[2022-10-01] MEDS: cefTRIAXone 1GM/50ML D5W 50 ML IV SCH (10:47)
[2022-10-01] MEDS: methylPREDNISolone SOD SUCC 125 MG/2 ML VL IV SCH ×2 (10:49→21:22)
[2022-10-01] MEDS: ASPirin-EC 81 mg tab PO SCH (10:50)
[2022-10-01] MEDS: AZITHROMYCIN 250 MG TAB PO SCH (10:51)
[2022-10-01] MEDS: CLOPIDOGREL BISULFATE 75 MG TAB PO SCH (10:53)
[2022-10-01] MEDS: LOSARTAN POTASSIUM 25 MG TAB PO SCH (10:55)
[2022-10-01 13:00] VITALS: BP 139/66
[2022-10-01 16:51] VITALS: BP 116/64
[2022-10-01] MEDS ORDERED: IPRATROPIUM BROM 0.5 MG/2.5ML INH SOL ONE (18:18)
[2022-10-01] MEDS ORDERED: ALBUTEROL SULF 2.5 MG/0.5ML(0.5%) NEB SOLN ONE (18:18)
[2022-10-01 22:00] VITALS: BP 136/73
[2022-10-01] MEDS: ATORVASTATIN 20 MG TAB PO SCH (22:01)
[2022-10-02] MEDS: ALBUTEROL SULF 2.5 MG/0.5ML(0.5%) NEB SOLN NEB SCH ×6 (02:32→21:50)
[2022-10-02] MEDS: IPRATROPIUM BROM 0.5 MG/2.5ML INH SOL NEB SCH ×6 (02:32→21:50)
[2022-10-02 05:00] VITALS: BP 123/62
[2022-10-02 09:00] VITALS: BP 123/53
[2022-10-02] MEDS: ASPirin-EC 81 mg tab PO SCH (12:21)
[2022-10-02] MEDS: CLOPIDOGREL BISULFATE 75 MG TAB PO SCH (12:21)
[2022-10-02] MEDS: LOSARTAN POTASSIUM 25 MG TAB PO SCH (12:22)
[2022-10-02] MEDS: AZITHROMYCIN 250 MG TAB PO SCH (12:22)
[2022-10-02] MEDS: cefTRIAXone 1GM/50ML D5W 50 ML IV SCH (12:22)
[2022-10-02 12:48] VITALS: BP 138/65
[2022-10-02] MEDS: SODIUM CHLORIDE 0.9% 1,000 ML IV SCH (15:33)
[2022-10-02] MEDS: methylPREDNISolone SOD SUCC 40 MG/ML VL IV SCH ×2 (15:34→22:21)
[2022-10-02 17:04] VITALS: BP 114/54
[2022-10-02] MEDS ORDERED: IPRATROPIUM BROM 0.5 MG/2.5ML INH SOL ONE (18:39)
[2022-10-02] MEDS ORDERED: ALBUTEROL SULF 2.5 MG/0.5ML(0.5%) NEB SOLN ONE (18:39)
[2022-10-02 22:00] VITALS: BP 115/56
[2022-10-02] MEDS: ATORVASTATIN 20 MG TAB PO SCH (22:21)
[2022-10-03] MEDS: IPRATROPIUM BROM 0.5 MG/2.5ML INH SOL NEB SCH ×4 (01:52→14:45)
[2022-10-03] MEDS: ALBUTEROL SULF 2.5 MG/0.5ML(0.5%) NEB SOLN NEB SCH ×4 (01:52→14:45)
[2022-10-03 05:00] VITALS: BP 126/63
[2022-10-03] MEDS: SODIUM CHLORIDE 0.9% 1,000 ML IV SCH ×2 (06:32→11:40)
[2022-10-03 09:00] VITALS: BP 140/66
[2022-10-03] MEDS: cefTRIAXone 1GM/50ML D5W 50 ML IV SCH (09:00)
[2022-10-03] MEDS ORDERED: PRED20TA2 PO (09:41)
[2022-10-03] MEDS ORDERED: DOXY-332 PO (09:42)
[2022-10-03] MEDS: LOSARTAN POTASSIUM 25 MG TAB PO SCH (10:00)
[2022-10-03] MEDS: methylPREDNISolone SOD SUCC 40 MG/ML VL IV SCH (10:00)
[2022-10-03] MEDS: ASPirin-EC 81 mg tab PO SCH (10:00)
[2022-10-03] MEDS: AZITHROMYCIN 250 MG TAB PO SCH (10:00)
[2022-10-03] MEDS: CLOPIDOGREL BISULFATE 75 MG TAB PO SCH (10:00)
[2022-10-03 13:00] VITALS: BP 126/57
== END 2022-10-03 15:00 | disposition home or self-care (01) | DRG 193 ==
LOC: ER 12:47 → OVERFLOW 17:25 → CENTRAL 22:45
PROVIDERS: ADMIT Nurse Practitioner Family; ATTEND Internal Medicine Pulmonary Disease
DX: J18.9 Pneumonia, unspecified organism (principal); J96.01 Acute respiratory failure with hypoxia; Z68.41 Body mass index [BMI] 40.0-44.9, adult; E11.65 Type 2 diabetes mellitus with hyperglycemia; E66.01 Morbid (severe) obesity due to excess calories; I10 Essential (primary) hypertension; M19.90 Unspecified osteoarthritis, unspecified site; F17.210 Nicotine dependence, cigarettes, uncomplicated; F41.9 Anxiety disorder, unspecified; I25.10 Atherosclerotic heart disease of native coronary artery without angina pectoris; Z20.822 Contact with and (suspected) exposure to COVID-19; Z91.199 Patient's noncompliance with other medical treatment and regimen due to unspecified reason; Z88.0 Allergy status to penicillin; Z98.61 Coronary angioplasty status
CPT/HCPCS: 36415; 36600; 71045; 71275; 76536; 80048; 80053; 80061; 81001; 82805; 82962; 83036; 83735; 83880; 84443; 84484; 85025; 85379; 87426; 93005; 93306; 94640; 96374; 96375; 99291; C9113; G0378; J0696; J1815